=== PATIENT | male | born 1960 | race American Indian/Alaskan Native ===

== ENCOUNTER 2018-10-21 11:09 | Emergency (ER) | payer BC, OTHER ==
[2018-10-21 11:32] VITALS: BMI 32.1
[2018-10-21 11:38] VITALS: RESP 18
[2018-10-21] MEDS ORDERED: Labetalol 5 mg/ml Inj 20ML IV STA (12:11)
--- NOTE | 2018-10-21 12:52 | ED PDOC ---
Arrival/HPI - General Chief Complaint: High Blood Pressure Time Seen by Provider: 10/21/18 11:25 Historian: Patient - History of Present Illness Narrative History of Present Illness (Text): 10/21/18 12:11 58 year old male, with past medical history of hypertension, presents to the ED for evaluation of generalized headache since yesterday. Patient informs elevated blood pressure since yesterday, unchanged since onset. Patient informs missing a dose of his bp medication 2 days ago. Patient denies taking anything for the pain at home. Patient denies any other associated somatic complaints. Patient denies any fever, chills, nausea, vomiting, diarrhea, abdominal pain, chest pain, SOB, chest pain, dizziness or any other complaints. PMD: Dr. Hernandes Time/Duration: 24 hours Symptom Onset: Gradual Symptom Course: Unchanged Activities at Onset: Light Context: Home Past Medical History - Provider Review Nursing Documentation Reviewed: Yes - Infectious Disease Hx of Infectious Diseases: None - Tetanus Immunization Tetanus Immunization: Unknown - Cardiac Hx Hypertension: Yes - Gastrointestinal Hx Gastrointestinal Disorders: Yes - Genitourinary/Gynecological Hx Genitourinary Disorders: No - Psychiatric Hx Depression: No Hx Emotional Abuse: No Hx Physical Abuse: No Hx Substance Use: No - Past Surgical History Past Surgical History: No Previous - Anesthesia Hx Anesthesia: No Hx Anesthesia Reactions: No Hx Malignant Hyperthermia: No - Suicidal Assessment Feels Threatened In Home Enviroment: No Family/Social History - Physician Review Nursing Documentation Reviewed: Yes Family/Social History: No Known Family HX Smoking Status: Never Smoked Hx Alcohol Use: No Hx Substance Use: No Hx Substance Use Treatment: No Allergies/Home Meds Allergies/Adverse Reactions: Allergies No Known Allergies Allergy (Verified 01/29/15 01:34) Home Medications: Home Meds Medication Instructions Recorded Confirmed Azilsartan Med/Chlorthalidone 1 tab PO DAILY 10/21/18 10/21/18 [Edarbyclor 40-25 mg Tablet] Carbamazepine 400 mg PO BID 10/21/18 10/21/18 Tamsulosin [Flomax] 1 tab PO DAILY 10/21/18 10/21/18 amLODIPine [Norvasc] 1 tab PO DAILY 10/21/18 10/21/18 Review of Systems - Physician Review All systems were reviewed & negative as marked: Yes - Review of Systems Eyes: absent: Vision Changes Respiratory: absent: SOB, Cough Cardiovascular: absent: Chest Pain, HOGAN Gastrointestinal: absent: Abdominal Pain, Diarrhea, Nausea, Vomiting Genitourinary Male: absent: Dysuria, Urinary Output Changes Musculoskeletal: absent: Back Pain, Neck Pain Skin: absent: Rash Neurological: Headache. absent: Dizziness, Focal Weakness Physical Exam - Physical Exam Narrative Physical Exam (Text): 10/21/18 12:10 Gen: VS reviewed, alert, well developed, well nourished, nontoxic, mild distress. ENT: normal pharynx. Eye: EOMI, PERRL. Neck: no JVD, supple, no adenopathy. CV: regular rate, regular rhythm, no rubs, no murmur, no gallops, S1, S2, pulses equal and strong. Pulm: no distress, clear to auscultation, no wheeze, no rhonchi, breath sounds equal, no rales. Abd: soft, nontender, no guarding, no rebound, no rigidity, normal bowel sounds. Ext: no edema. Skin: good color, no rash, no cyanosis. Psych: responds appropriately to questions, normal affect. Neuro: oriented x 3, CN2-12 intact grossly, motor intact, sensation intact. Vital Signs Reviewed: Yes Vital Signs Temp Pulse Resp BP Pulse Ox 10/21/18 11:39 145/97 H 10/21/18 11:37 99.3 F 102 H 18 149/104 H 97 Temperature: Afebrile Blood Pressure: Hypertensive Pulse: Tachycardic Respiratory Rate: Normal Appearance: Positive for: Well-Appearing, Non-Toxic, Comfortable Pain Distress: None Mental Status: Positive for: Alert and Oriented X 3 Medical Decision Making ED Course and Treatment: 10/21/18 12:11 Impression: 58 year old male presents to the Ed for evaluation of generalized headache and elevated blood pressure. Plan: -- CT of Head -- EKG -- Labs -- CXR -- Labetalol -- Tylenol Progress Notes: 10/21/18 16:36 patient reports 50% improvement in headache after medications. patient feel much better and ready to go home. patient states he has experienced similiar headaches in the past. patient states the headache is throbbing in nature, no acute max onset headache to suggest SAH, no fever or meningismus to suggest meingitis. Ct head was doen to rule out ICH in light of hypertension. patient stable for discharge. - RAD Interpretation Narrative RAD Interpretations (Text): 10/21/18 14:43 CT reviewed by radiologist: Stable unenhanced head CT with no acute intracranial findings compared prior CT 01/10/2014 and brain MRI dated 03/12/2014. Chest X-Ray reviewed by radiologist: No active disease. Radiology Orders: 10/21/18 12:10 CHEST PORTABLE [RAD] Stat 10/21/18 12:11 HEAD W/O CONTRAST [CT] Stat Drum Drier: Radiologist - EKG Interpretation EKG Interpretation (Text): 10/21/18 13:54 EKG reviewed at 11:52, shows NSR @99bpm, nml qrs, nml axis, LVH, no acute ST/T wave changes. Interpreted by ED Physician: Yes Type: 12 lead EKG - Medication Orders Current Medication Orders: Discontinued Medications Acetaminophen (Tylenol 325mg Tab) 975 mg PO STAT STA Stop: 10/21/18 12:12 Labetalol HCl (Trandate) 10 mg IV STAT STA Stop: 10/21/18 12:12 - Scribe Statement The provider has reviewed the documentation as recorded by the Scribe Jan Roca. All medical record entries made by the Scribe were at my direction and personally dictated by me. I have reviewed the chart and agree that the record accurately reflects my personal performance of the history, physical exam, medical decision making, and the department course for this patient. I have also personally directed, reviewed, and agree with the discharge instructions and disposition. Disposition/Present on Arrival - Present on Arrival Any Indicators Present on Arrival: No History of DVT/PE: No History of Uncontrolled Diabetes: No Urinary Catheter: No History of Decub. Ulcer: No History Surgical Site Infection Following: None - Disposition Have Diagnosis and Disposition been Completed?: Yes Diagnosis: Hypertension, Migraine Disposition: HOME/ ROUTINE Disposition Time: 16:39 Patient Plan: Discharge Condition: STABLE Discharge Instructions (ExitCare): High Blood Pressure in Adults, Migraine Headaches in Adults Additional Instructions: follow up with a neurologist for recurrent headaches. follow up with your primary c are doctor as soon as possible to discuss better control of your blood pressure-call tomorrow to make an appointment. Referrals: Rojelio Henriquez MD [Staff Provider] - Follow up with primary [facility] [Outside] - Follow up with primary Perlita Velásquez MD [Medical Doctor] - Follow up with primary Forms: [employer] (J[place]ican), WORK NOTE
[2018-10-21] MEDS ORDERED: Labetalol 5mg/ml (4ml) IV STA (13:03)
[2018-10-21 13:21] LABS: BASO # 0.02 K/mm3 (0.0-2.0); BASO % 0.2 % (0.0-3.0); EOS # 0.2 (0.0-0.7); EOS % 1.7 % (1.5-5.0); HEMOGLOBIN 14.9 g/dL (14.0-18.0); LYMPH # 0.9 (1.2-3.4); LYMPH % 9.7 % (22.0-35.0); MEAN CELL VOLUME 90.1 fl (80.0-105.0); MEAN CORPUSCULAR HEMOGLOBIN 30.6 pg (25.0-35.0); MEAN CORPUSCULAR HGB CONC 33.9 g/dl (31.0-37.0); MEAN PLATELET VOLUME 8.6 fl (7.0-11.0); MONO # 1.1 (0.1-0.6); MONO % 11.5 % (1.0-6.0); RBC 4.87 10^6/uL (3.5-6.1); RED CELL DISTRIBUTION WIDTH 12.3 % (11.5-14.5); WHITE BLOOD COUNT 9.5 10^3/uL (4.5-11.0)
[2018-10-21 13:32] LABS: INR 1.19; PARTIAL THROMBOPLASTIN TIME 30.9 Seconds (26.9-38.3); PROTHROMBIN TIME 13.5 SECONDS (9.4-12.5)
[2018-10-21 13:34] LABS: ALB/GLOB RATIO 1.2 (1.1-1.8); ALBUMIN 4.6 g/dL (3.0-4.8); ALT/SGPT 39 U/L (7-56); AST/SGOT 31 U/L (17-59); BLOOD UREA NITROGEN 9 mg/dL (7-21); CALCIUM 9.5 mg/dL (8.4-10.5); GFR NON-AFRICAN AMERICAN > 60
[2018-10-21 13:42] LABS: TROPONIN I < 0.01 ng/mL
--- NOTE | 2018-10-21 13:50 | CT ---
Date of service: 10/21/2018 PROCEDURE: CT HEAD WITHOUT CONTRAST. HISTORY: headache, ICH COMPARISON: None available. TECHNIQUE: Axial computed tomography images were obtained through the head/brain without intravenous contrast. Radiation dose: Total exam DLP = 800.46 mGy-cm. This CT exam was performed using one or more of the following dose reduction techniques: Automated exposure control, adjustment of the mA and/or kV according to patient size, and/or use of iterative reconstruction technique. FINDINGS: HEMORRHAGE: No intracranial hemorrhage. BRAIN: Normal keith-white matter differentiation and density are appreciated throughout the cerebrum and cerebellum with the brainstem appearing unremarkable as well. There is no mass effect. There is no suspicious extra-axial fluid collection and the midline brain anatomy appears diffusely unremarkable. VENTRICLES: Unremarkable. No hydrocephalus. CALVARIUM: Unremarkable. PARANASAL SINUSES: Unremarkable as visualized. No significant inflammatory changes. MASTOID AIR CELLS: Unremarkable as visualized. No inflammatory changes. OTHER FINDINGS: None. IMPRESSION: Stable unenhanced head CT with no acute intracranial findings compared prior CT 01/10/2014 and brain MRI dated 03/12/2014.
--- NOTE | 2018-10-21 13:50 | RAD ---
Date of service: 10/21/2018 HISTORY: chest pain COMPARISON: No prior. FINDINGS: LUNGS: No active pulmonary disease. PLEURA: No significant pleural effusion identified, no pneumothorax apparent. CARDIOVASCULAR: No aortic atherosclerotic calcification present. Normal cardiac size. No pulmonary vascular congestion. OSSEOUS STRUCTURES: No significant abnormalities. VISUALIZED UPPER ABDOMEN: Normal. OTHER FINDINGS: None. IMPRESSION: No active disease.
[2018-10-21 14:16] VITALS: O2SAT 96
[2018-10-21 16:48] VITALS: BP 115/88; PULSE 88; TEMP 98.2
--- NOTE | 2018-10-22 12:47 | CARD ---
APPROVED REPORT Date of service: 10/21/2018 EKG Measurement Heart [id number] <Conclusion> Normal sinus rhythm Possible Left atrial enlargement
== END 2018-10-21 16:48 | disposition home or self-care (01) ==
LOC: ED 11:09
DX: G43.909 Migraine, unspecified, not intractable, without status migrainosus (principal); I10 Essential (primary) hypertension
CPT/HCPCS: 70450; 71045; 80053; 84443; 84484; 85025; 85610; 85730; 93005; 96374; 96375; 99284; J1885; J2765